=== PATIENT | female | born 1950 | race Caucasian/White ===

== ENCOUNTER → 2017-11-29 12:44 | Outpatient (CLI) | payer OTHER, SELFPAY | PROVIDERS: Family Provider Family Medicine; PCP Family Medicine; Visit Provider Orthopaedic Surgery | DX: Z01.818 Encounter for other preprocedural examination (principal) | CPT/HCPCS: 93005; 93010 ==

== ENCOUNTER 2017-12-22 06:28 | Inpatient (IN) | payer OTHER, SELFPAY ==
[2017-12-03 12:54] VITALS: BMI 34.5
[2017-12-22] VITALS (23 sets, daily range): BP systolic 78–140; BP diastolic 38–89; PULSE 68–88; RESP 9–20; TEMP 35.9–37.4; O2SAT 89–98; BMI 34.5
--- NOTE | 2017-12-22 | DI.RAD.S_ITS ---
PROCEDURE: XR PELVIS 1-2V INDICATIONS: LEFT TOTAL HIP TECHNIQUE: Intra-operative view of the pelvis and hip acquired. COMPARISON: [facility] [place], XR PELVIS WITH BILATERAL LATERAL HIPS, 11/06/2017, 9:44. FINDINGS: Bones: Intraoperative devices prior to placement of arthroplasty prostheses are in expected positions. No fractures or suspicious bony lesions. Note is made of prior right arthroplasty. Soft tissues: Overlying surgical retractors are present, along with other intraoperative changes. IMPRESSION: Left hip arthroplasty with prosthesis in anatomic alignment. Dictated by: Stacy Hernandez M.D. on 12/22/2017 at 12:05 Approved by: Stacy Hernandez M.D. on 12/22/2017 at 12:06
[2017-12-22] MEDS: PREGABALIN 75 MG CAPSULE PO (07:34)
[2017-12-22] MEDS: LACTATED RINGERS 1,000 ML 42 ML IV (07:34)
[2017-12-22] MEDS: ACETAMINOPHEN 325 MG TABLET 975 MG PO (07:34)
--- NOTE | 2017-12-22 08:13 | PM.PREOP ---
Pre-operative Note Interval Note Pre-op Check: History & Physical Reviewed by Physician and Changes
[2017-12-22] MEDS: CEFAZOLIN 2 GM/100 ML FROZ.PIGGY IV (08:15)
[2017-12-22] MEDS: BUPIVACAINE LIPOSOME 266 MG/20 ML VIAL INJ (08:49)
[2017-12-22] MEDS: TRANEXAMIC ACID 1,000 MG VIAL 1000 MG INJ ×2 (08:50)
[2017-12-22] MEDS: BUPIVACAINE 0.5% W/ EPI (PF) 30 ML VIAL INJ (08:51)
--- NOTE | 2017-12-22 08:57 | SUR.OPER ---
Lateral on padded OR bed. Gel axillary roll. Arms secured on padded armboard with pillow supporting top arm. Padded hip positioner braces x4 - anterior and posterior chest and pelvis. Additional gel pad used anterior pelvis. Gel pad under bottom leg from knee to foot and secured with tape over sheet.
[2017-12-22] MEDS: SCOPOLAMINE 1 PATCH TOP (09:25)
--- NOTE | 2017-12-22 10:00 | PM.OP.1 ---
Operative Date/Time/Diagnoses Date of procedure: 12/22/17 Time of procedure: 10:00 Pre-op diagnosis: Left hip degenerative joint disease Post-op diagnosis: same Procedure & Clinicians Procedure: Left total hip arthroplasty (CPT code 41900 with assistant account manager) Same procedure as scheduled: Yes Indications: Patient is an 67-year-old female with severe left hip DJD. The patient has pain with activities and at rest, limited ambulation and activity tolerance, difficulties with ADLs, and failure of conservative treatment. We have discussed the nature of condition, treatment options, risks and benefits, and patient elects to proceed with total hip arthroplasty and gives informed consent. Plan on use of a ceramic femoral head implant due to potential metal allergy. Surgeon: Bigg Hammond Enterprise Sales Person: Opal Aleman Anesthesia Type: General and Spinal Operative Notes Closure Type: primary Specimen(s): none sent Implants & Drains: Acetabulum: [employer]re [employer] R3 acetabular component size 50 mm Femoral component: [employer]re [employer]hew Synergy stem size 12 with standard offset Femoral head: 32 mm + 0 ceramic Estimated Blood Loss (mL): 100 Blood products transfused: none Procedure in detail: After satisfaction induction of anesthetic, and administration of IV antibiotics, the patient was positioned in the lateral decubitus position with all bony prominences well padded and pelvic position secured using a hip nursing home assistant positioning device. Left hip and lower extremity prepped and draped in the usual sterile fashion, 1st dose of intravenous tranexamic acid was administered, then a longitudinal incision was created centered over the greater trochanter and carried sharply through the skin and subcutaneous tissues down to the fascia felicia which was divided longitudinally and retracted with a Charnley retractor. External rotators visualize, cut, tagged, and retracted posteriorly, then the capsule was cut in a T-type fashion with the corners tagged and retracted. Hip was dislocated and femoral neck cut made according to preoperative templating. Acetabular retractors then placed, and the acetabular labrum and osteophytes were excised. The acetabulum was then sequentially reamed to 49 mm with an excellent circumferential ream and fit with the trial. The trial component was removed and a permanent size 50 mm Alexandre [employer] Nephew R3 acetabular component was selected, positioned, and impacted with satisfactory position and fixation achieved. Permanent liner was then inserted with the elevated lip directed posteriorly. Soft tissue then removed off the lateral femoral neck in the lateral neck was entered using a box osteotome. T-handled reamers placed down the canal followed by sequential broaching to 12 with the final broach left in place for trial reduction which demonstrated excellent leg length, range of motion, and stability characteristics with a 32 mm +0 trial ball. The trial and broach were removed, and a permanent size 12 Alexandre [employer] Nephew Synergy stem was selected and inserted with excellent position and fixation achieved. Another trial reduction yielded the above characteristics so the trial ball was exchanged for a permanent 32 mm +0 ceramic ball. The hip was irrigated and reduced and excellent leg length range of motion and stability characteristics were achieved and maintained. Periarticular tissues were infiltrated with Exparel. The hip was copiously irrigated, and the capsule repaired with #2 Ethibond, and the piriformis was repaired back to the greater trochanter with the same. Fascia felicia closed with interrupted #1 Ethibond sutures, and the subcutaneous tissues were closed in 2 layers of 0 Vicryl and 2 0 Vicryl. Skin was closed with madi and sterile dressings applied. Second dose of tranexamic acid was administered intravenously, and the anesthetic was terminated. Complications: none Condition: stable Disposition: PACU Plan for aftercare: Patient will be admitted to the acute care man, and anticipate discharge on postop day 1-2 with follow-up in office in 10-14 days. Outpatient physical therapy will be arranged and patient will continue to observe posterior hip precautions. Patient will continue use of postoperative Lovenox for 10 days postop.
--- NOTE | 2017-12-22 10:04 | P.OP_ITS ---
Operative Date/Time/Diagnoses Date of procedure: 12/22/17 Time of procedure: 10:00 Pre-op diagnosis: Left hip degenerative joint disease Post-op diagnosis: same Procedure & Clinicians Procedure: Left total hip arthroplasty (CPT code 54102 with engineer assistant) Same procedure as scheduled: Yes Indications: Patient is an 67-year-old female with severe left hip DJD. The patient has pain with activities and at rest, limited ambulation and activity tolerance, difficulties with ADLs, and failure of conservative treatment. We have discussed the nature of condition, treatment options, risks and benefits, and patient elects to proceed with total hip arthroplasty and gives informed consent. Plan on use of a ceramic femoral head implant due to potential metal allergy. Surgeon: Bigg Hammond Clinical Analyst: Opal Aleman Anesthesia Type: General and Spinal Operative Notes Closure Type: primary Specimen(s): none sent Implants & Drains: Acetabulum: Alexandre [employer] Nephew R3 acetabular component size 50 mm Femoral component: Alexandre [employer] Nephew Synergy stem size 12 with standard offset Femoral head: 32 mm + 0 ceramic Estimated Blood Loss (mL): 100 Blood products transfused: none Procedure in detail: After satisfaction induction of anesthetic, and administration of IV antibiotics, the patient was positioned in the lateral decubitus position with all bony prominences well padded and pelvic position secured using a hip tennis coach positioning device. Left hip and lower extremity prepped and draped in the usual sterile fashion, 1st dose of intravenous tranexamic acid was administered, then a longitudinal incision was created centered over the greater trochanter and carried sharply through the skin and subcutaneous tissues down to the fascia felicia which was divided longitudinally and retracted with a Charnley retractor. External rotators visualize, cut, tagged, and retracted posteriorly, then the capsule was cut in a T-type fashion with the corners tagged and retracted. Hip was dislocated and femoral neck cut made according to preoperative templating. Acetabular retractors then placed, and the acetabular labrum and osteophytes were excised. The acetabulum was then sequentially reamed to 49 mm with an excellent circumferential ream and fit with the trial. The trial component was removed and a permanent size 50 mm Alexandre and Nephew R3 acetabular component was selected, positioned, and impacted with satisfactory position and fixation achieved. Permanent liner was then inserted with the elevated lip directed posteriorly. Soft tissue then removed off the lateral femoral neck in the lateral neck was entered using a box osteotome. T-handled reamers placed down the canal followed by sequential broaching to 12 with the final broach left in place for trial reduction which demonstrated excellent leg length, range of motion, and stability characteristics with a 32 mm +0 trial ball. The trial and broach were removed, and a permanent size 12 Alexandre [employer] Nephew Synergy stem was selected and inserted with excellent position and fixation achieved. Another trial reduction yielded the above characteristics so the trial ball was exchanged for a permanent 32 mm +0 ceramic ball. The hip was irrigated and reduced and excellent leg length range of motion and stability characteristics were achieved and maintained. Periarticular tissues were infiltrated with Exparel. The hip was copiously irrigated, and the capsule repaired with #2 Ethibond, and the piriformis was repaired back to the greater trochanter with the same. Fascia felicia closed with interrupted #1 Ethibond sutures, and the subcutaneous tissues were closed in 2 layers of 0 Vicryl and 2 0 Vicryl. Skin was closed with madi and sterile dressings applied. Second dose of tranexamic acid was administered intravenously , and the anesthetic was terminated. Complications: none Condition: stable Disposition: PACU Plan for aftercare: Patient will be admitted to the acute care man, and anticipate discharge on postop day 1-2 with follow-up in office in 10-14 days. Outpatient physical therapy will be arranged and patient will continue to observe posterior hip precautions. Patient will continue use of postoperative Lovenox for 10 days postop.
[2017-12-22] MEDS: ONDANSETRON 4 MG/2 ML INJ IV (10:16)
--- NOTE | 2017-12-22 10:22 | SUR.PHASEI ---
sats low 90s while dozing, 4lnc applied, sats 98%
[2017-12-22] MEDS: METOCLOPRAMIDE 10 MG/2 ML INJ IV (10:40)
--- NOTE | 2017-12-22 10:47 | SUR.PHASEI ---
BP cuff moved from left arm to right arm. BP now wnl.
--- NOTE | 2017-12-22 11:01 | SUR.PHASEI ---
VS stable, Pt's eyes closed, easily arouses to voice. Drsg cdi.
--- NOTE | 2017-12-22 11:15 | SUR.PHASEI ---
Report called to SYED Cagle.
--- NOTE | 2017-12-22 11:33 | PC.NURSE ---
Post-op: Arrived to room 220 at 1122. Awake and oriented X3, groggy. SpO2 on 2L 96%, cont pulse ox in place. Denies pain or discomfort, instructed to let RN know when she starts to feel pain/discomfort. Still numb from groin to toes, able to wiggle toes a little bit. PP+, cap refill <2 sec BLE's. NEL dressing to L hip C/D/I, battery pack flashing green. No more. Denies N/V. Oriented to room and call light, encouraged to make needs known. Light in reach, bed alarm on.
--- NOTE | 2017-12-22 11:41 | SUR.PHASEI ---
Transferred to the floor. Report to SYED Cagle. VS stable, Drsg cdi. Kari drain in place. + ppx2, RT stronger than left. IV saline locked. Cane and belongings bag with pt. family present.
--- NOTE | 2017-12-22 12:01 | PC.ADMIT ---
[email or web address] Sweta Simon Admission Note: Pt to room 220 from PACU. Admission assessment completed with help of pt and pt's sister. Pt is AO x3 and making needs known with clear speech. Oriented to room, fall risk, routine, activity. Pt verbalizes understanding and demonstrates use of call light. Verbalizes understanding of high fall risk. Safety intact. The patient,Juanita Castillo,67 y/o, was given written information regarding hospital policies, unit procedures and contact persons. Patient's smoking status: Former smoker. Vital Signs - 8 hr 12/22/17 07:49 12/22/17 10:00 12/22/17 10:04 Temperature 96.6 F L 98.9 F Pulse Rate 74 88 82 Respiratory Rate 20 12 11 L Blood Pressure 120/67 93/59 L 92/55 L Pulse Oximetry 95 94 95 12/22/17 10:09 12/22/17 10:11 12/22/17 10:13 Temperature Pulse Rate 70 68 70 Respiratory Rate 9 L Blood Pressure 79/38 L 78/46 L 88/49 L Pulse Oximetry 96 12/22/17 10:15 12/22/17 10:19 12/22/17 10:29 Temperature Pulse Rate 76 76 74 Respiratory Rate 14 19 11 L Blood Pressure 84/50 L 91/46 L 90/43 L Pulse Oximetry 89 L 96 98 12/22/17 10:39 12/22/17 10:45 12/22/17 10:51 Temperature Pulse Rate 79 79 82 Respiratory Rate 13 12 17 Blood Pressure 84/41 L 114/52 L 101/45 L Pulse Oximetry 95 93 93 12/22/17 10:55 12/22/17 11:10 12/22/17 11:15 Temperature 97.1 F L Pulse Rate 74 76 Respiratory Rate 12 13 Blood Pressure 117/52 L 102/52 L 110/44 L Pulse Oximetry 94 95 12/22/17 11:22 Temperature 97.7 F Pulse Rate 74 Respiratory Rate 16 Blood Pressure 125/89 H Pulse Oximetry 96
[2017-12-22] MEDS: LACTATED RINGERS 1,000 ML 125 ML IV ×2 (12:43→21:26)
[2017-12-22] MEDS: ONDANSETRON 4 MG ODT PO ×2 (14:48→22:26)
[2017-12-22] MEDS: IBUPROFEN 200 MG TABLET 400 MG PO (14:48)
--- NOTE | 2017-12-22 15:35 | PT.IIE ---
Current Diagnoses Unilateral primary osteoarthritis, left hip (12/22/17) Surgery Performed Operation Date: 12/22/17 07:45 Actual Procedures p Total Hip Arthroplasty(Left) - Bigg Hammond MD Surgical History (Last Updated 12/03/17 @ 13:22 by Fara Hoang, RN) History of surgery on arm (Acute) History of carpal tunnel repair History of hip replacement (12/20/03) History of tonsillectomy Status post appendectomy Status post hysterectomy with oophorectomy Status post laparoscopy Status post laparoscopy Status post laparoscopy Medical History (Last Updated 12/03/17 @ 13:26 by Fara Hoang, SYED) Anxiety (Acute) Arthritis (Acute) Easy bruisability (Acute) Generalized abdominal distress (Acute) Osteopenia (Acute) Psoriasis (Acute) Seasonal allergies (Acute) Physical Therapy Inpatient Evaluation/Re-Eval M1 PT/OT-IP Prior Functional Status Start: 12/22/17 11:40 Freq: NEEDED Status: Active Protocol: Document 12/22/17 15:35 MDD (Rec: 12/22/17 17:27 MDD [email or web address]) Medical Review Prior Functional Status Medical History Reviewed Yes Mobility and Gait Independent with no AD Activities of Daily Living and IADL's Independent Prior Functional Level (Other details) 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 Social History Household Members spouse Living Arrangements House Number of Floors (Floors) One Floor Number of Stairs To Enter/Railing? 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 Pt' s is semi-retired, home most days except for 4 hours on mondays. Niece is a nurse. M2 PT-IP Current Condition Start: 12/22/17 11:40 Freq: NEEDED Status: Active Protocol: Document 12/22/17 15:35 MDD (Rec: 12/22/17 17:27 MDD [email or web address]) Physical Therapy Current Condition Current Condition Evaluation Date 12/22/17 Treatment Diagnosis s/p L ISAI, impaired mobility, impaired gait Onset Date 12/22/17 Precautions Posterior Hip Precautions No Hip Flexion > 90 degrees No Hip Internal Rotation No Hip Adduction Weight Bearing Status Weight Bearing Status Weight Bear as Tolerated M3 PT-IP Subjective Start: 12/22/17 11:40 Freq: NEEDED Status: Active Protocol: Document 12/22/17 15:35 MDD (Rec: 12/22/17 17:27 MDD [email or web address]) Subjective Physical Therapy Visit Type Type Initial Evaluation Visit Start Time 14:40 Visit Stop Time 15:35 Total Visit Minutes 55 Number of BINGO MANAGER Visits 0 Physical Therapy Visit Comments Patient Comments Motivated to move. Short Term Goals transfer to the commode. Therapy Pain Assessment Pain When Pain Assessed At Rest Pain Present Pain Present Pain Reported Location Hip Intensity 2 Scale Used Numeric (1 - 10) Description Aching M4 PT-IP Mobility and Gait Start: 12/22/17 11:40 Freq: NEEDED Status: Active Protocol: Document 12/22/17 15:35 MDD (Rec: 12/22/17 17:27 MDD [email or web address]) PT-Bed Mobility Assessment Supine to Sit Supine to Sit Minimal Assistance Head of Bed Elevated Sit to Supine Sit to Supine Minimal Assistance Scooting Scooting to Edge of Bed Contact Guard Assistance PT-Transfer Assessment Sit to and From Stand Sit to and from Stand Contact Guard Assistance Equipment Transfer Assistive Device Front Wheeled Walker Orthotic/Prosthetic Devices or Brace: No Transfers Transfer Destination Bed Toilet Transfer Technique Stand Step Pivot Transfer Ability Level of Assist Contact Guard Assistance Comments Mobility Comments Pt with one LOB backwards with min A at gait belt back into bed upon standing. Gait Assessment Gait Able to Maintain Weight Bearing Status No During Gait PT-Balance Assessment Sitting Balance and Reactions Static Sitting Balance Ability Normal Dynamic Sitting Balance Ability Normal Standing Balance and Reactions Static Standing Balance Ability Fair Dynamic Standing Balance Ability Fair M5 PT-IP Objective Assessments Start: 12/22/17 11:40 Freq: NEEDED Status: Active Protocol: Document 12/22/17 15:35 MDD (Rec: 12/22/17 17:27 MDD [email or web address]) Orientation Orientation/Cognition Level of Alertness Alert Orientation Name Age Birthday Month Date Year Day of Week Place Situation Language Function Ability No Deficits Noted Safety Awareness Understands Safety Issues Memory Description No Deficits Noted Gross Range of Motion Lower Extremity ROM Assessment Within Functional Limits Strength Lower Extremity Strength Assessment Within Functional Limits Sensation Assessment Sensation Gross Sensation WNL Light Touch Intact Comments Sensation Comments Pt reports mild n/t in B thighs M6 PT-IP Treatment Start: 12/22/17 11:40 Freq: NEEDED Status: Active Protocol: Document 12/22/17 15:35 MDD (Rec: 12/22/17 17:27 MDD [email or web address]) Physical Therapy Treatment Exercises Exercises Ankle Pumps Gluteal Sets Quad Sets Heel Slides Straight Leg Raises Supine Hip Abduction Education Education Provided Precautions Weight Bearing Status Post-Op Packet Safety M7 PT-IP Assessment and Plan Start: 12/22/17 11:40 Freq: NEEDED Status: Active Protocol: Document 12/22/17 15:35 MDD (Rec: 12/22/17 17:27 MDD [email or web address]) PT Summary Assessment and Plan Potential Rehabilitation Potential Excellent Status of Condition at Evaluation Stable Summary Impairments Pain ROM Bed Mobility Transfers Gait Activity Tolerance Progress Towards Goals Progressing Toward Goals Assessment Summary Pt demonstrating initial unsteadiness on her feet with first stand. Was able to perform stand step pivot transfer back to bed with CGA. Goals Bed Mobility Goal Independent Transfer Goal Independent Gait Goal Standby Assistance Gait Distance 150 Other Goals Able to ascend/descend 2 stairs with single point cane and no railings Days to Meet Goals 2 Frequency of Treatment Frequency Of Treatment Twice a Day Treatment Plan Physical Therapy Treatment Plan Bed Mobility Training Transfer Training Gait Training Therapeutic Exercise Post Op Education Discharge Planning Other Recommendations and Next Treatment Progress gait training and Focus begin stair training as able. Recommendations To Nursing Amount of Assist Needed 1 Person Assist Discharge Recommendations PT Discharge Recommendations Home with Assistance Equipment Needed for Home Before May consider tub chair with Discharge back support/handrests
--- NOTE | 2017-12-22 17:02 | PC.NURSE ---
Addendum entered by Lamar Fletcher R.N. 12/22/17 17:05: At 1530: No Post-op antibiotics noted on AUG. I notified [facility] via telephone call, equipment operator warehouse said PA was with patient, I asked that she relay message to the PA or Surgeon. Original Note: Juanita reports numbness to both legs, does feel pressure of nurse hand on hips, legs and feet. Wiggling toes, pulse present & Scd's on bilaterally. NEL drsg to L hip is CDI, nel device blinking green light intermittently. Device secured in gown pocket. Denies pain at this time. Denies nausea. Transfered by P.T. from bed to BSC, able to urinate. Back into bed. Post-op instructions & hip precautions reviewed. VS stable. RA oxygen 98%, (2L o2 removed). Continuous pulse ox in place per spinal orders. Family brought in IS, I instructed use every hour 10 x's while awake. Family present during post-op teaching. Pt encouraged to call nurse if she has any questions or concerns, or if feels any pain.
[2017-12-22] MEDS: HYDROCODONE/ACET 5/325 TABLET 1 TAB PO ×2 (18:34→22:26)
[2017-12-22] MEDS: CEFAZOLIN 1 GM/50 ML FROZ.PIGGY IV (18:35)
[2017-12-22] MEDS: ATENOLOL 50 MG TABLET PO (20:52)
[2017-12-22] MEDS: hydrOXYzine pamoate 25 MG CAPSULE PO (20:52)
[2017-12-22] MEDS: IBUPROFEN 400 MG TABLET PO (20:52)
[2017-12-22] MEDS: GEMFIBROZIL 600 MG TABLET PO (20:53)
[2017-12-22] MEDS: SIMVASTATIN 40 MG TABLET PO (20:53)
[2017-12-22] MEDS: ASPIRIN EC 81 MG TABLET PO (20:53)
[2017-12-23] VITALS: BP 106/51; PULSE 71; RESP 17; TEMP 36.8; O2SAT 93
[2017-12-23] MEDS: HYDROCODONE/ACET 5/325 TABLET 1 TAB PO ×3 (03:18→11:14)
[2017-12-23] MEDS: hydrOXYzine pamoate 25 MG CAPSULE PO (03:18)
[2017-12-23] MEDS: CEFAZOLIN 1 GM/50 ML FROZ.PIGGY IV (03:19)
[2017-12-23] MEDS: ONDANSETRON 4 MG ODT PO ×2 (03:20→08:27)
--- NOTE | 2017-12-23 04:18 | PC.NURSE ---
Addendum entered by Hina Perez R.N. 12/23/17 07:21: Pt up to chair after walked to br and voided. Pt verbalized she would not get up without assistance. Pt uses call light. daughter in room at bedside. Pt stated ibuprofen is working and enjoys. Original Note: Assumed care of pt from outgoing shift at 2300 7-16. Pt awake. states she dozes in and out, which is usual for her. she requests to be woken when pain medication is due. antibiotics re-timed and administered per AUG. given pain medicine. pt walks to BR with one assist and walker. pt sleeping for a few hours at a time. bed in lowest, locked position. belongings sand call light within reach., will continue to monitor pt for safety.
[2017-12-23 04:40] VITALS: BP 106/54; PULSE 64; RESP 17; TEMP 36.6; O2SAT 94
[2017-12-23 05:43] LABS: Hematocrit 29.4 % (36-46)
[2017-12-23] MEDS: IBUPROFEN 400 MG TABLET PO (06:05)
--- NOTE | 2017-12-23 07:47 | P.DS_ITS ---
History of Present Illness Date Patient Seen: 12/23/17 Time Patient Seen: 07:13 Chief complaint: [id number] Narrative: Patient seen bedside s/p L. ISAI POD #1. Doing well, pain is well controlled and she has been up with PT. She is able to ambulate to the bathroom by herself but has not yet worked on stairs. She is ready to go home today. Discharge Providers Date of admission: 12/22/17 06:28 Primary care physician: Kylah Diaz MD Consults: 12/22/17 11:29 Consult to Discharge Planning Routine Comment: Consult to Physical Therapy Evaluate & Treat Comment: Physician Instructions: post op ISAI protocol Consult to Respiratory Therapy Evaluate & Treat Comment: Physician Instructions: Evaluate and treat Discharge provider: Opal Aleman PA-C Summary Discharge Diagnosis: Patient seen bedside s/p L. ISAI POD #1. She tolerated the procedure well with no complications. Doing well, pain is well controlled and she has been up with PT. She is able to ambulate to the bathroom by herself but has not yet worked on stairs. She is ready to go home today. Exam Vital Signs (past 8 hours): - 12/23/17 00:00 12/23/17 04:40 Temperature 98.2 F 97.8 F Pulse Rate 71 64 Respiratory Rate 17 17 Blood Pressure 106/51 L 106/54 L Pulse Oximetry 93 94 Oxygen Delivery Method Room Air Oxygen Flow Rate 0 Narrative Exam Narrative: Patient is well-developed, well-nourished, in no acute distress , alert & oriented x3. Left hip NEL dressing is CDI, she is NVI in this extremity. Has full ROM of the ankle and knee. Calf is soft and compressible. Objective Labs Result Diagrams: 12/23/17 05:23 Labs: Laboratory Results - last 24 hr 12/23/17 05:23 Hgb 10.0 L Hct 29.4 L Discharge Plan Discharge Plan Patient Disposition: Home, Self-Care Discharge Med Rec/Prescriptions Prescriptions: New aspirin 81 mg Tablet,Delayed Release (Dr/Ec) 81 mg PO BID 42 Days Qty: 0 RF: 0 enoxaparin [Lovenox] 40 mg/0.4 mL Syringe 40 mg Sub-Q DAILY 8 Days Qty: 9 RF: 0 ondansetron 4 mg Tablet,Disintegrating 4 mg PO Q4HR PRN (Reason: Nausea) Qty: 0 RF: 0 hydroxyzine pamoate 25 mg Capsule 25 mg PO Q6HR PRN (Reason: Spasms) Qty: 0 RF: 0 Continue cholecalciferol (vitamin D3) [Vitamin D3] 2,000 UNIT capsule 2,000 unit PO Q DAY Qty: 0 RF: 0 esomeprazole magnesium [Nexium] 40 MG capsule,delayed release(DR/EC) 40 mg PO QAM Qty: 0 RF: 0 ibuprofen 200 MG tablet 400 mg PO PRN PRN (Reason: pain) Qty: 0 RF: 0 fluvastatin [Lescol] 40 MG capsule 40 mg PO HS Qty: 90 RF: 3 hydrochlorothiazide 25 MG tablet 25 mg PO QDAY Qty: 90 RF: 3 epinephrine 0.3 MG/0.3 ML auto-injector 0.3 mg IM SEE INSTRUCTIONS Qty: 1 RF: 3 gemfibrozil 600 MG tablet 600 mg PO BID Qty: 0 RF: 0 bupropion HCl [Wellbutrin XL] 150 MG tablet extended release 24 hr 150 mg PO QDAY Qty: 30 RF: 3 cetirizine [Zyrtec] 10 mg capsule 10 mg PO DAILY RF: 0 biotin 1 mg capsule 2,500 mcg PO DAILY RF: 0 dextromethorphan-guaifenesin [Mucinex DM] 30-600 mg Tablet Extended Release 12 Hr 1 tab PO Q12H RF: 0 atenolol 50 MG tablet 50 mg PO BEDTIME RF: 0 Follow up/Referrals: [facility] [Provider Group] - 12/26/17 10:00 am Provider Discharge Instructions Diet: Diet as Tolerated Activity: WBAT, use walker until cleared by PT to walk without, follow posterior hip precautions Cold/Heat Therapy: Ice for 20 minutes at least every hour while awake Wound Care Report to your healthcare provider any signs of infection, such as:: chills, fever, night sweats, increased pain and unusual drainage Visit Report/Discharge Packet Instructions: DI for Hip Replacement, Enoxaparin Injection, Hydrocodone Visit Report Forms: Stroke Signs & Symptoms Discharge Data Primary Care Provider: Kylah Diaz Attending Provider: Bigg Hammond Admit Date/Time: 12/22/17 06:28 Discharges patient from system. Discharge Date/Time: 12/23/17 11:51 Quality VTE Deep Vein Thrombosis/Pulmonary Embolism Present on Admission: No
[2017-12-23] MEDS: ENOXAPARIN 40 MG/0.4 ML SYRINGE SUBCUT (08:25)
[2017-12-23] MEDS: hydroCHLOROthiazide 25 MG TABLET PO (08:26)
[2017-12-23] MEDS: GEMFIBROZIL 600 MG TABLET PO (08:26)
[2017-12-23] MEDS: CHOLECALCIFEROL (VITAMIN D3) 1,000 UNIT TABLET 2000 UNIT PO (08:26)
[2017-12-23] MEDS: PANTOPRAZOLE 40 MG TABLET PO (08:26)
[2017-12-23] MEDS: buPROPion XL 150 MG TAB PO (08:27)
[2017-12-23] MEDS: SODIUM CHLORIDE 0.9% FLUSH 10 ML IV (08:27)
[2017-12-23] MEDS: ASPIRIN EC 81 MG TABLET PO (08:27)
[2017-12-23 08:30] VITALS: BP 116/61; PULSE 69; RESP 16; TEMP 36.7; O2SAT 95
--- NOTE | 2017-12-23 09:51 | PT.IPTN ---
Current Diagnoses Unilateral primary osteoarthritis, left hip (12/22/17) Surgery Performed Operation Date: 12/22/17 07:45 Actual Procedures p Total Hip Arthroplasty(Left) - Bigg Hammond MD Physical Therapy Treatment Note M2 PT-IP Current Condition Start: 12/22/17 11:40 Freq: NEEDED Status: Discharge Protocol: Document 12/22/17 15:35 MDD (Rec: 12/22/17 17:27 MDD [email or web address]) Physical Therapy Current Condition Current Condition Evaluation Date 12/22/17 Treatment Diagnosis s/p L ISAI, impaired mobility, impaired gait Onset Date 12/22/17 Precautions Posterior Hip Precautions No Hip Flexion > 90 degrees No Hip Internal Rotation No Hip Adduction Weight Bearing Status Weight Bearing Status Weight Bear as Tolerated M3 PT-IP Subjective Start: 12/22/17 11:40 Freq: NEEDED Status: Discharge Protocol: Document 12/23/17 09:51 MDD (Rec: 12/23/17 12:17 MDD [email or web address]) Subjective Physical Therapy Visit Type Type Treatment Note Visit Start Time 09:21 Visit Stop Time 09:51 Total Visit Minutes 30 Number of CHEMICAL PUMPER Visits 0 Physical Therapy Visit Comments Patient Comments Pt feeling much better today. Still feeling some n/t in B thighs. Short Term Goals Stair training Therapy Pain Assessment Pain When Pain Assessed At Rest Pain Present Pain Present Pain Reported Location Hip Scale Used Numeric (1 - 10) Description Aching M4 PT-IP Mobility and Gait Start: 12/22/17 11:40 Freq: NEEDED Status: Discharge Protocol: Document 12/22/17 15:35 MDD (Rec: 12/22/17 17:27 MDD [email or web address]) PT-Bed Mobility Assessment Supine to Sit Supine to Sit Minimal Assistance Head of Bed Elevated Sit to Supine Sit to Supine Minimal Assistance Scooting Scooting to Edge of Bed Contact Guard Assistance PT-Transfer Assessment Sit to and From Stand Sit to and from Stand Contact Guard Assistance Equipment Transfer Assistive Device Front Wheeled Walker Orthotic/Prosthetic Devices or Brace: No Transfers Transfer Destination Bed Toilet Transfer Technique Stand Step Pivot Transfer Ability Level of Assist Contact Guard Assistance Comments Mobility Comments Pt with one LOB backwards with min A at gait belt back into bed upon standing. Gait Assessment Gait Able to Maintain Weight Bearing Status No During Gait PT-Balance Assessment Sitting Balance and Reactions Static Sitting Balance Ability Normal Dynamic Sitting Balance Ability Normal Standing Balance and Reactions Static Standing Balance Ability Fair Dynamic Standing Balance Ability Fair M5 PT-IP Objective Assessments Start: 12/22/17 11:40 Freq: NEEDED Status: Discharge Protocol: Document 12/22/17 15:35 MDD (Rec: 12/22/17 17:27 MDD [email or web address]) Orientation Orientation/Cognition Level of Alertness Alert Orientation Name Age Birthday Month Date Year Day of Week Place Situation Language Function Ability No Deficits Noted Safety Awareness Understands Safety Issues Memory Description No Deficits Noted Gross Range of Motion Lower Extremity ROM Assessment Within Functional Limits Strength Lower Extremity Strength Assessment Within Functional Limits Sensation Assessment Sensation Gross Sensation WNL Light Touch Intact Comments Sensation Comments Pt reports mild n/t in B thighs M6 PT-IP Treatment Start: 12/22/17 11:40 Freq: NEEDED Status: Discharge Protocol: Document 12/23/17 09:51 MDD (Rec: 12/23/17 12:17 MDD [email or web address]) Physical Therapy Treatment Education Education Provided Precautions Weight Bearing Status Post-Op Packet Safety Other Treatments Other Treatment Performed Stair training: ascend/descend stairs using SPC, 3 steps x 2 . Quad cane and handhold assist with PT x 1 and family caregiver x 1. Pt ambulated 157 feet with SBA using FWW, cues for heel toe and step through pattern. M7 PT-IP Assessment and Plan Start: 12/22/17 11:40 Freq: NEEDED Status: Discharge Protocol: Document 12/23/17 09:51 MDD (Rec: 12/23/17 12:17 MDD [email or web address]) PT Summary Assessment and Plan Potential Rehabilitation Potential Excellent Status of Condition at Evaluation Stable Summary Impairments Pain ROM Progress Towards Goals Safe For Discharge Goals Met Assessment Summary Pt demonstrates independent bed mobility, safety with gait and stair training today. Safe to d/c when medically necessary. Goals Bed Mobility Goal Independent Transfer Goal Independent Gait Goal Standby Assistance Gait Distance 150 Other Goals Able to ascend/descend 2 stairs with single point cane and no railings Days to Meet Goals 2 Frequency of Treatment Frequency Of Treatment Discharge Discharge Recommendations PT Discharge Recommendations Home Home with Assistance Outpatient PT Other Discharge Recommendations outpatient PT already scheduled in [place].
--- NOTE | 2017-12-23 10:19 | PC.NURSE ---
Addendum entered by Phyllis Daigle R.N. 12/23/17 11:50: Pt taken via wc to vehicle driven by family, had all belongings. Went over dc meds and instructions, rx for lovenox given. Original Note: Pt alert, oriented rates pain to hip 5/10 given one vicodin with breakfast. Pt ambulating with physical therapy, administered her own lovenox injection. Had difficulty getting cap off, this RN suggested having a family member assist.
--- NOTE | 2017-12-23 10:51 | OT.IP.TRT ---
Current Diagnoses Unilateral primary osteoarthritis, left hip (12/22/17) Surgery Performed Operation Date: 12/22/17 07:45 Actual Procedures p Total Hip Arthroplasty(Left) - Bigg Hammond MD Occupational Therapy Treatment Note M3 OT- IP Subjective and Pain Start: 12/23/17 10:48 Freq: Status: Active Protocol: Document 12/23/17 10:48 [facility] (Rec: 12/23/17 10:50 [facility] [email or web address]) OT- Subjective Occupational Therapy Visit Type Type Administrative Note Visit Start Time 10:40 Visit Stop Time 10:45 Total Visit Minutes 5 Notes Pt going home but having questions for getting into her bathtub. Pt did not have any OT orders but able to speak to her and her daughter of different options for safety of transferring into and out of the tub. No charge.
[2017-12-23] MEDS: LORATADINE 10 MG TABLET PO (11:15)
--- NOTE | 2017-12-23 14:29 | CM.DANOTE ---
DCP/Assessment: Reviewed chart. Patient is a 67yr old female admitted to I. for hip replacement surgery performed by Dr. Hammond. PCP is Dr. Diaz. Primary payor is [facility]. Patient discharged from [facility] today before CM team assessment. Reviewed notes which indicate that patient cleared by therapy to d/c home. Patient has outpatient therapy scheduled to begin in [place] next week. Patient resides with spouse/Vijay in [place]. At time of d/c there were no anticipated d/c planning needs and/or concerns. 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 Prior Living Arrangements House Household Members spouse Independent with ADL's Yes Is patient alert and oriented? Yes Caregiver for Another No DME Already Rented / Owned FWW / Walker Patient Discharge Plan Description OP PT Therapy Discharge Plan Home Transportation Arrangement Private auto Review Status Complete Next Review Type Discharge Review
== END 2017-12-23 11:51 | disposition home or self-care (01) | DRG 470 ==
PROVIDERS: Admitting Provider Orthopaedic Surgery; Family Provider Family Medicine; PCP Family Medicine; Visit Provider Orthopaedic Surgery
PROC: 0SRB0JZ Replacement of Left Hip Joint with Synthetic Substitute, Open Approach (ICD-10-PCS; CPT 27130; principal; 2017-12-22 07:45)
DX: M16.12 Unilateral primary osteoarthritis, left hip (principal); I10 Essential (primary) hypertension; F17.210 Nicotine dependence, cigarettes, uncomplicated
CPT/HCPCS: 72170; 85014; 85018; 97110; 97116; 97161; C1776; C9290; J0690; J1100; J1650; J2250; J2274; J2405; J2704; J2765

== ENCOUNTER → 2018-05-09 10:45 | Outpatient (CLI) | payer OTHER, SELFPAY ==
[2017-12-22 11:47] VITALS: BMI 34.5
[2018-05-09 11:25] LABS: Hemoglobin A1C% w Est Avg Glu 7.9 % (4.0-6.0)
[2018-05-09 11:26] LABS: BUN Creatinine Ratio 31.7 (6-22); Blood Urea Nitrogen 19 mg/dL (7-17); Calcium 9.5 mg/dL (8.4-10.2); Carbon Dioxide 28 mmol/L (22-32); Chloride 98 mmol/L (98-107); Cholesterol 145 mg/dL (140-199); Estimated Glomerular Filt Rate > 60.0 mL/min (>60); Glucose 150 mg/dL (80-110); HDL Cholesterol 29 mg/dL (40-60); HEMOLYSIS < 15 (0-50); LDL Cholesterol Calculated 84 mg/dL (<100); Potassium 3.9 mmol/L (3.4-5.1); Sodium 140 mmol/L (137-145); Triglycerides 161 mg/dL (35-150)
[2018-05-09 11:33] LABS: Hematocrit 36.1 % (36-46); Hemoglobin 12.6 g/dL (12.0-16.0); Mean Corpuscular Hemoglobin 28.8 PG (26-34); Mean Corpuscular Volume 82.2 fL (80-100); Platelet Count 315 X10^3/uL (150-400); Red Blood Cell Count 4.39 X10^6/uL (4.0-5.2); Red Cell Distribution Width 14.1 % (11.6-14.8); White Blood Cell Count 8.5 X10^3/uL (4.5-11.0)
[2018-05-09 11:43] LABS: Neutrophils Absolute Manual 6970 /uL (3000-5900); Total Cells Counted 100
[2018-05-09 11:45] LABS: Anisocytosis 1+; Polychromasia 1+
[2018-05-09 13:18] LABS: Microalbumi Creatinin Ratio Ur 16.6 ug/mg CR (<30); Microalbumin Urine Random < 0.6 mg/dL (0-1.6)
== END ==
PROVIDERS: Family Provider Family Medicine; PCP Family Medicine; Visit Provider Family Medicine
DX: E78.2 Mixed hyperlipidemia (principal); I10 Essential (primary) hypertension; R73.09 Other abnormal glucose
CPT/HCPCS: 36415; 80048; 80061; 82043; 82570; 83036; 85025

== ENCOUNTER → 2018-05-20 08:06 | Outpatient (CLI) | payer OTHER, SELFPAY ==
[2017-12-22 11:47] VITALS: BMI 34.5
[2018-05-20 08:38] LABS: Add Manual Diff / Slide Review NO; Eosinophils Percent Auto 1.9 % (2-4); Hematocrit 37.9 % (36-46); Hemoglobin 13.1 g/dL (12.0-16.0); Mean Corpuscular HGB Conc 34.5 % (30-36); Mean Corpuscular Hemoglobin 28.6 PG (26-34); Mean Corpuscular Volume 82.9 fL (80-100); Monocytes Percent Auto 6.3 % (3-14); Neutrophils Absolute Auto 5600 /uL (3000-5900); Neutrophils Percent Auto 77.8 % (50-75); Platelet Count 317 X10^3/uL (150-400); Red Blood Cell Count 4.58 X10^6/uL (4.0-5.2); White Blood Cell Count 7.2 X10^3/uL (4.5-11.0)
[2018-05-20 08:48] LABS: Alanine Aminotransferase 31 IU/L (9-52); Albumin 4.7 g/dL (3.5-5.0); Albumin Globulin Ratio 1.4 (1.0-2.8); Alkaline Phosphatase 104 U/L (38-126); Aspartate Aminotransferase 30 IU/L (14-36); BUN Creatinine Ratio 27.1 (6-22); Bilirubin Total 0.6 mg/dL (0.2-1.3); Blood Urea Nitrogen 19 mg/dL (7-17); Calcium 9.8 mg/dL (8.4-10.2); Carbon Dioxide 29 mmol/L (22-32); Chloride 99 mmol/L (98-107); Estimated Glomerular Filt Rate > 60.0 mL/min (>60); Globulin 3.4 g/dL (1.7-4.1); Glucose 164 mg/dL (80-110); HEMOLYSIS < 15 (0-50); Sodium 140 mmol/L (137-145); Total Protein 8.1 g/dL (6.3-8.2)
--- NOTE | 2018-05-20 14:27 | PC.NURSE ---
stable labs, Provider visit on 06/01
[2018-05-21 14:49] LABS: Immunoglobulin A 301 mg/dL (81-463); Immunoglobulin G, Quantitative 1010 mg/dL (694-1618)
[2018-05-21 15:06] LABS: Free Kappa Light Chain 19.8 mg/L (3.3-19.4); Free Kappa/ Lambda Ratio 1.72 (0.26-1.65); Free Lambda 11.5 mg/L (5.7-26.3)
[2018-05-21 19:38] LABS: Beta-2-Microglobulin 2.37 mg/L (< 2.52)
== END ==
PROVIDERS: Internal Medicine Hematology & Oncology; PCP Family Medicine; Visit Provider Nurse Practitioner Gerontology
DX: D47.2 Monoclonal gammopathy (principal)
CPT/HCPCS: 36415; 80053; 82232; 82784; 83883; 85025

== ENCOUNTER → 2018-06-04 07:17 | Outpatient (CLI) | payer OTHER, SELFPAY ==
[2017-12-22 11:47] VITALS: BMI 34.5
--- NOTE | 2018-06-04 07:17 | DI.MG.S_ITS ---
BILATERAL DIGITAL SCREENING MAMMOGRAM 3D/2D WITH CAD: 06/04/2018 CLINICAL: Routine screening. Family history of breast cancer. Comparison is made to exams dated: 02/21/2017 mammogram, 02/05/2016 mammogram, and 02/03/2015 mammogram - [facility]. The tissue of both breasts is predominantly fatty. Current study was also evaluated with a Computer Aided Detection (CAD) system. No significant masses, calcifications, or other findings are seen in either breast. There has been no significant interval change. IMPRESSION: NEGATIVE There is no mammographic evidence of malignancy. A 1 year screening mammogram is recommended. This exam was interpreted at Station ID: [id number]. NOTE: For mammograms, a report in lay terms will be sent to the patient. Approximately 15% of breast malignancies will not be visualized mammographically. In the management of a palpable breast mass, a negative mammogram must not discourage biopsy of a clinically suspicious lesion. Electronically Signed By: Clay vela/ainsley:06/04/2018 19:12:43 letter sent: Normal Exam ACR BI-RADS Category 1: Negative 3341F
== END ==
PROVIDERS: PCP Family Medicine; Visit Provider Family Medicine
DX: Z12.31 Encounter for screening mammogram for malignant neoplasm of breast (principal)
CPT/HCPCS: 77063; 77067

== ENCOUNTER → 2018-09-14 10:40 | Outpatient (CLI) | payer MEDICARE, OTHER, SELFPAY ==
[2017-12-22 11:47] VITALS: BMI 34.5
== END ==
PROVIDERS: PCP Family Medicine; Visit Provider Family Medicine
DX: E11.9 Type 2 diabetes mellitus without complications (principal)
CPT/HCPCS: 36415; 83036

== ENCOUNTER → 2019-04-28 11:44 | Outpatient (CLI) | payer MEDICARE, OTHER, SELFPAY ==
[2019-02-26 09:53] VITALS: BMI 34.5
[2019-04-28 12:45] LABS: Cholesterol 157 mg/dL (140-199); HDL Cholesterol 24 mg/dL (40-60); Hemoglobin A1C% w Est Avg Glu 12.5 % (4.0-6.0); LDL Cholesterol Calculated 79 mg/dL (<100); Triglycerides 272 mg/dL (35-150)
[2019-04-28 15:54] LABS: Creatinine Urine Random 132.4 mg/dL
[2019-04-28 15:57] LABS: Microalbumi Creatinin Ratio Ur 59.6 ug/mg CR (<30); Microalbumin Urine Random 7.9 mg/dL (0-1.6)
== END ==
PROVIDERS: PCP Family Medicine; Visit Provider Family Medicine
DX: E11.9 Type 2 diabetes mellitus without complications (principal); E78.2 Mixed hyperlipidemia; I10 Essential (primary) hypertension
CPT/HCPCS: 36415; 80061; 82043; 82570; 83036

== ENCOUNTER → 2019-06-08 12:25 | Outpatient (CLI) | payer MEDICARE, OTHER, SELFPAY ==
[2019-02-26 09:53] VITALS: BMI 34.5
--- NOTE | 2019-06-08 | DI.MG.S_ITS ---
BILATERAL DIGITAL SCREENING MAMMOGRAM 3D/2D WITH CAD: 06/08/2019 CLINICAL: Routine screening. Family history of breast cancer. Comparison is made to exams dated: 06/04/2018 mammogram, 02/21/2017 mammogram, 02/05/2016 mammogram, 02/03/2015 mammogram, and 01/28/2014 mammogram - [facility]. There are scattered fibroglandular elements in both breasts. Current study was also evaluated with a Computer Aided Detection (CAD) system. There are mole markers on the right breast. No significant masses, calcifications, or other findings are seen in either breast. There has been no significant interval change. IMPRESSION: NEGATIVE There is no mammographic evidence of malignancy. A 1 year screening mammogram is recommended. This exam was interpreted at Station ID: [id number]. NOTE: For mammograms, a report in lay terms will be sent to the patient. Approximately 15% of breast malignancies will not be visualized mammographically. In the management of a palpable breast mass, a negative mammogram must not discourage biopsy of a clinically suspicious lesion. Electronically Signed By: Lyle velazquez/ainsley:06/08/2019 17:58:44 letter sent: Normal Exam ACR BI-RADS Category 1: Negative 3341F
== END ==
PROVIDERS: PCP Family Medicine; Visit Provider Family Medicine
DX: Z12.31 Encounter for screening mammogram for malignant neoplasm of breast (principal); Z80.3 Family history of malignant neoplasm of breast
CPT/HCPCS: 77063; 77067

== ENCOUNTER → 2019-10-04 10:20 | Outpatient (CLI) | payer MEDICARE, OTHER, SELFPAY ==
[2019-02-26 09:53] VITALS: BMI 34.5
[2019-10-04 13:11] LABS: Hemoglobin A1C% w Est Avg Glu 5.7 % (4.0-6.0)
== END ==
PROVIDERS: PCP Family Medicine; Referring Provider Family Medicine; Visit Provider Family Medicine
DX: E11.9 Type 2 diabetes mellitus without complications (principal)
CPT/HCPCS: 36415; 83036

== ENCOUNTER → 2020-02-15 12:15 | Outpatient (CLI) | payer MEDICARE, OTHER, SELFPAY ==
[2019-02-26 09:53] VITALS: BMI 34.5
[2020-02-15 13:42] LABS: Hemoglobin A1C% w Est Avg Glu 5.6 % (4.0-6.0)
[2020-02-15 15:42] LABS: Alanine Aminotransferase 17 IU/L (<35); Albumin 4.9 g/dL (3.5-5.0); Albumin Globulin Ratio 1.4 (1.0-2.8); Alkaline Phosphatase 115 U/L (38-126); Aspartate Aminotransferase 24 IU/L (14-36); Bilirubin Total 0.6 mg/dL (0.2-1.3); Blood Urea Nitrogen 21 mg/dL (7-17); Calcium 10.2 mg/dL (8.4-10.2); Carbon Dioxide 29 mmol/L (22-32); Chloride 100 mmol/L (98-107); Estimated Glomerular Filt Rate > 60.0 mL/min (>60); Globulin 3.4 g/dL (1.7-4.1); Glucose 101 mg/dL (80-110); HEMOLYSIS < 15 (0-50); Potassium 4.4 mmol/L (3.4-5.1); Sodium 139 mmol/L (137-145); Total Protein 8.3 g/dL (6.3-8.2)
== END ==
PROVIDERS: PCP Family Medicine; Referring Provider Family Medicine; Visit Provider Family Medicine
DX: E11.9 Type 2 diabetes mellitus without complications (principal)
CPT/HCPCS: 36415; 80053; 83036

== ENCOUNTER → 2020-07-15 10:09 | Outpatient (CLI) | payer MEDICARE, OTHER, SELFPAY ==
[2019-02-26 09:53] VITALS: BMI 34.5
--- NOTE | 2020-07-15 | DI.MG.S_ITS ---
BILATERAL DIGITAL SCREENING MAMMOGRAM 3D/2D WITH CAD: 07/15/2020 CLINICAL: Routine screening. Family history of breast cancer. Comparison is made to exams dated: 06/08/2019 mammogram, 06/04/2018 mammogram, and 02/21/2017 mammogram - [facility]. There are scattered fibroglandular elements in both breasts. Current study was also evaluated with a Computer Aided Detection (CAD) system. There is a mole marker on the right breast. No significant masses, calcifications, or other findings are seen in either breast. There has been no significant interval change. IMPRESSION: NEGATIVE There is no mammographic evidence of malignancy. A 1 year screening mammogram is recommended. This exam was interpreted at Station ID: [id number]. NOTE: For mammograms, a report in lay terms will be sent to the patient. Approximately 15% of breast malignancies will not be visualized mammographically. In the management of a palpable breast mass, a negative mammogram must not discourage biopsy of a clinically suspicious lesion. Electronically Signed By: Paul goodman/ainsley:07/17/2020 07:55:43 letter sent: Normal Exam ACR BI-RADS Category 1: Negative 3341F
== END ==
PROVIDERS: PCP Family Medicine; Referring Provider Family Medicine; Visit Provider Family Medicine
DX: Z12.31 Encounter for screening mammogram for malignant neoplasm of breast (principal); Z80.3 Family history of malignant neoplasm of breast
CPT/HCPCS: 77063; 77067

== ENCOUNTER → 2021-08-07 15:17 | Outpatient (CLI) | payer MEDICARE, OTHER, SELFPAY ==
[2019-02-26 09:53] VITALS: BMI 34.5
--- NOTE | 2021-08-07 | DI.MG.S_ITS ---
BILATERAL DIGITAL SCREENING MAMMOGRAM 3D/2D WITH CAD: 08/07/2021 CLINICAL: Routine screening. Family history of breast cancer. Comparison is made to exams dated: 07/15/2020 mammogram, 06/08/2019 mammogram, 06/04/2018 mammogram, 02/21/2017 mammogram, and 02/05/2016 mammogram - [facility]. There are scattered fibroglandular elements in both breasts. Current study was also evaluated with a Computer Aided Detection (CAD) system. No significant masses, calcifications, or other findings are seen in either breast. There has been no significant interval change. IMPRESSION: NEGATIVE There is no mammographic evidence of malignancy. A 1 year screening mammogram is recommended. This exam was interpreted at Station ID: [id number]. NOTE: For mammograms, a report in lay terms will be sent to the patient. Approximately 15% of breast malignancies will not be visualized mammographically. In the management of a palpable breast mass, a negative mammogram must not discourage biopsy of a clinically suspicious lesion. Electronically Signed By: Selwyn lange/ainsley:08/08/2021 09:02:39 letter sent: Normal Exam ACR BI-RADS Category 1: Negative 3341F
== END ==
PROVIDERS: PCP Family Medicine; Referring Provider Family Medicine; Visit Provider Family Medicine
DX: Z12.31 Encounter for screening mammogram for malignant neoplasm of breast (principal); Z80.3 Family history of malignant neoplasm of breast
CPT/HCPCS: 77063; 77067

== ENCOUNTER → 2022-08-09 08:49 | Outpatient (CLI) | payer MEDICARE, OTHER, SELFPAY ==
[2019-02-26 09:53] VITALS: BMI 34.5
--- NOTE | 2022-08-09 | DI.MG.S_ITS ---
BILATERAL DIGITAL SCREENING MAMMOGRAM 3D/2D WITH CAD: 08/09/2022 CLINICAL: Routine screening. Family history of breast cancer. Comparison is made to exams dated: 08/07/2021 mammogram, 07/15/2020 mammogram, 06/08/2019 mammogram, and 06/04/2018 mammogram - [facility]. There are scattered areas of fibroglandular density in both breasts (category b / 25%-50% glandular tissue). Current study was also evaluated with a Computer Aided Detection (CAD) system. No significant masses, calcifications, or other findings are seen in either breast. There has been no significant interval change. IMPRESSION: NEGATIVE There is no mammographic evidence of malignancy. A 1 year screening mammogram is recommended. Based on the Tyrer Cuzick model (a risk assessment model) the patient's lifetime risk is 10.8% and her 10 year risk is 6.9%. According to the ACR, ACS, and NCCN guidelines, an annual breast MRI exam along with mammogram is recommended if the patient's lifetime risk is 20% or greater. This exam was interpreted at Station ID: [id number]. NOTE: For mammograms, a report in lay terms will be sent to the patient. Approximately 15% of breast malignancies will not be visualized mammographically. In the management of a palpable breast mass, a negative mammogram must not discourage biopsy of a clinically suspicious lesion. Electronically Signed By: Selwyn lange/ainsley:08/09/2022 16:10:23 letter sent: Normal Exam ACR BI-RADS Category 1: Negative 3341F
== END ==
PROVIDERS: PCP Family Medicine; Referring Provider Family Medicine; Visit Provider Family Medicine
DX: Z12.31 Encounter for screening mammogram for malignant neoplasm of breast (principal); Z80.3 Family history of malignant neoplasm of breast
CPT/HCPCS: 77063; 77067

== ENCOUNTER → 2022-10-04 11:32 | Outpatient (CLI) | payer MEDICARE, OTHER, SELFPAY ==
[2019-02-26 09:53] VITALS: BMI 34.5
[2022-10-04 15:07] LABS: Creatinine Urine Random 52.6 mg/dL
[2022-10-04 15:10] LABS: Microalbumi Creatinin Ratio Ur 60.8 ug/mg CR (<30); Microalbumin Urine Random 3.2 mg/dL (0-1.6)
[2022-10-04 15:18] LABS: Alanine Aminotransferase 21 IU/L (<35); Albumin 4.6 g/dL (3.5-5.0); Albumin Globulin Ratio 1.7 (1.0-2.8); Alkaline Phosphatase 122 U/L (38-126); Aspartate Aminotransferase 28 IU/L (14-36); BUN Creatinine Ratio 23.1 (6-22); Bilirubin Total 0.5 mg/dL (0.2-1.3); Blood Urea Nitrogen 15 mg/dL (7-17); Calcium 9.5 mg/dL (8.4-10.2); Carbon Dioxide 26 mmol/L (22-32); Chloride 99 mmol/L (98-107); Cholesterol 160 mg/dL (140-199); Estimated Glomerular Filt Rate > 60 mL/min (>60); Globulin 2.7 g/dL (1.7-4.1); Glucose 96 mg/dL (80-110); HDL Cholesterol 31 mg/dL (40-60); HEMOLYSIS < 15 (0-50); LDL Cholesterol Calculated 87 mg/dL (<100); Potassium 3.1 mmol/L (3.4-5.1); Sodium 138 mmol/L (137-145); Total Protein 7.3 g/dL (6.3-8.2); Triglycerides 211 mg/dL (35-150)
== END ==
PROVIDERS: PCP Family Medicine; Referring Provider Family Medicine; Visit Provider Family Medicine
DX: E78.2 Mixed hyperlipidemia; D47.2 Monoclonal gammopathy; F32.9 Major depressive disorder, single episode, unspecified; I10 Essential (primary) hypertension; E11.9 Type 2 diabetes mellitus without complications
CPT/HCPCS: 36415; 80053; 80061; 82043; 82570; 83036

== ENCOUNTER → 2023-11-27 09:48 | Outpatient (CLI) | payer MEDICARE, OTHER, SELFPAY ==
[2019-02-26 09:53] VITALS: BMI 34.5
--- NOTE | 2023-11-27 09:49 | DI.MG.S_ITS ---
BILATERAL DIGITAL SCREENING MAMMOGRAM 3D/2D WITH CAD: 11/27/2023 CLINICAL: Routine screening. Family history of breast cancer. Comparison is made to exams dated: 08/09/2022 mammogram, 08/07/2021 mammogram, and 07/15/2020 mammogram - [facility]. There are scattered areas of fibroglandular density in both breasts (category b / 25%-50% glandular tissue). Current study was also evaluated with a Computer Aided Detection (CAD) system. No significant masses, calcifications, or other findings are seen in either breast. There has been no significant interval change. IMPRESSION: NEGATIVE There is no mammographic evidence of malignancy. A 1 year screening mammogram is recommended. Based on the Tyrer Cuzick model (a risk assessment model) the patient's lifetime risk is 10.2% and her 10 year risk is 7.0%. According to the ACR, ACS, and NCCN guidelines, an annual breast MRI exam along with mammogram is recommended if the patient's lifetime risk is 20% or greater. This exam was interpreted at Station ID: [id number]. NOTE: For mammograms, a report in lay terms will be sent to the patient. Approximately 15% of breast malignancies will not be visualized mammographically. In the management of a palpable breast mass, a negative mammogram must not discourage biopsy of a clinically suspicious lesion. Electronically Signed By: Vijay smith/ainsley:11/27/2023 11:00:33 letter sent: Normal Exam ACR BI-RADS Category 1: Negative 3341F
== END ==
PROVIDERS: PCP Family Medicine; Referring Provider Family Medicine; Visit Provider Family Medicine
DX: Z12.31 Encounter for screening mammogram for malignant neoplasm of breast (principal); Z80.3 Family history of malignant neoplasm of breast; R92.323 Mammographic fibroglandular density, bilateral breasts
CPT/HCPCS: 77063; 77067

== ENCOUNTER → 2024-12-04 10:04 | Outpatient (CLI) | payer MEDICARE, OTHER, SELFPAY ==
[2019-02-26 09:53] VITALS: BMI 34.5
--- NOTE | 2024-12-04 10:05 | DI.MG.S_ITS ---
MM screening mammo BI: 12/04/2024. BI-RADS: 1 CLINICAL: 74-year old female for bilateral screening mammogram. Tyrer-Cuzick lifetime risk of 8.5%. Current reported family history of breast cancer: sister. PRIOR EXAMS 11/27/2023, 08/09/2022, 08/07/2021, 07/15/2020, MAMMOGRAPHY TECHNIQUE: 2D and 3D (tomosynthesis) digital mammographic views obtained, with additional images as needed for full coverage. Current study was also evaluated with a Computer Aided Detection (CAD) system. DENSITY B. There are scattered areas of fibroglandular density. MAMMOGRAPHY FINDINGS Bilateral: No suspicious mass, asymmetry, microcalcification, or other abnormality seen. IMPRESSION: * No evidence of malignancy. RECOMMENDATIONS Bilateral * Annual screening mammography. OVERALL ASSESSMENT CATEGORY BI-RADS-1: Negative. The [employer] recommends annual screening mammography beginning at age 40 for women with average risk of breast cancer. ELECTRONICALLY SIGNED: Paul Carroll M.D. on 12/06/2024 at 07:41:44 AM PT Interpreting Station ID: [id number]
== END ==
PROVIDERS: PCP Family Medicine; Referring Provider Family Medicine; Visit Provider Family Medicine
DX: Z12.31 Encounter for screening mammogram for malignant neoplasm of breast (principal); Z80.3 Family history of malignant neoplasm of breast
CPT/HCPCS: 77063; 77067

== ENCOUNTER → 2025-06-07 09:51 | Outpatient (CLI) | payer MEDICARE, OTHER, SELFPAY ==
[2019-02-26 09:53] VITALS: BMI 34.5
[2025-06-07 12:07] LABS: Alanine Aminotransferase 14 IU/L (<35); Albumin 4.6 g/dL (3.5-5.0); Albumin Globulin Ratio 1.6 (1.0-2.8); Alkaline Phosphatase 131 U/L (38-126); Blood Urea Nitrogen 15 mg/dL (7-17); Calcium 9.5 mg/dL (8.4-10.2); Carbon Dioxide 28 mmol/L (22-32); Chloride 99 mmol/L (98-107); Cholesterol 162 mg/dL (140-199); Estimated Glomerular Filt Rate > 60 mL/min (>60); Globulin 2.8 g/dL (1.7-4.1); Glucose 149 mg/dL (70-99); HDL Cholesterol 36 mg/dL (40-60); HEMOLYSIS < 15 (0-50); Potassium 3.9 mmol/L (3.4-5.1); Sodium 139 mmol/L (137-145); Total Protein 7.4 g/dL (6.3-8.2); Triglycerides 222 mg/dL (35-150)
[2025-06-07 12:10] LABS: Microalbumi Creatinin Ratio Ur 104.0 ug/mg CR (<30)
== END ==
PROVIDERS: PCP Family Medicine; Referring Provider Family Medicine; Visit Provider Family Medicine
DX: E11.9 Type 2 diabetes mellitus without complications (principal)
CPT/HCPCS: 36415; 80053; 80061; 82043; 82570